=== PATIENT | female | born 1955 | race Caucasian/White ===

== ENCOUNTER 2022-10-07 06:28 | Day surgery (SDC) | payer OTHER ==
[2022-10-04 12:12] LABS: Absolute Lymphocytes (CBC) 1.7 K/uL (0.7-4.9); Hematocrit 43.6 % (36.0-45.0); Lymphocytes % 26.7 % (15.3-44.8); MCV 98.4 fL (80-100); MPV 8.8 fL (7.6-11.3); RBC Red Blood Cell Count 4.44 M/uL (3.86-4.86)
--- NOTE | 2022-10-04 12:21 | RAD REPORT ---
EXAM DESCRIPTION: RAD - Chest Pa And Lat (2 Views) - 10/04/2022 12:02 pm CLINICAL HISTORY: pre op for surgery Chest pain. COMPARISON: Chest Pa And Lat (2 Views) dated 03/26/2017; CHEST PA AND LAT 2 VIEW dated 05/30/2010; CHES T SINGLE VIEW dated 06/11/2009; CHEST PA AND LAT 2 VIEW dated 09/20/2008 TECHNIQUE: PA and lateral views of the chest were obtained. FINDINGS: The lungs are hyperexpanded compatible with COPD. The heart is upper limit of normal in si ze. No fracture or aggressive bony process. IMPRESSION: COPD without acute process identified. The USPSTF recommends annual screening for lung cancer with low-dose CT (LDCT) in adults aged 50 to 80 years who have a 20 pack-year smoking history and currently smoke or have quit within the past 15 years.
[2022-10-04 12:26] LABS: Albumin 4.2 g/dL (3.4-5.0); Bilirubin Direct 0.2 mg/dL (0-0.2); Bilirubin Indirect, Calculated 0.5 mg/dL (0.2-0.8); Bilirubin Total 0.7 mg/dL (0.2-1.0); Potassium 3.8 mEq/L (3.5-5.1); Protein, Total 7.6 g/dL (6.4-8.2)
--- NOTE | 2022-10-06 08:24 | EKG ---
Test Date: 2022-10-04 Test Time: 11:39:25 Handle Lathe Operator: CHARLA MEASUREMENT RESULTS: Intervals: Rate: 52 VT: 136 QRSD: 84 QT: 446 QTc: 414 Holcomb: P: 69 VT: 136 QRS: 72 T: 79 INTERPRETIVE STATEMENTS: Sinus bradycardia Otherwise normal ECG Compared to ECG 03/02/2018 17:38:00 Sinus rhythm no longer present Electronically Signed On 10-06-22 08:18:30 CDT by Merlin Zheng
[2022-10-07] MEDS: Ringers Lactate 1,000 ML IV ONE ×3 (06:44→07:33)
[2022-10-07] MEDS ORDERED: BUPIVACAINE 0.5% PF 10 ML VIAL ONE (07:12)
[2022-10-07] MEDS: CEFOXITIN SODIUM 1 GM/VIAL ONE ×2 (07:13→07:35)
[2022-10-07] MEDS ORDERED: propofoL 200 MG/20 ML VIAL IV ONE (07:14)
[2022-10-07] MEDS ORDERED: FENTANYL CITR 100 MCG/2 ML ONE ×2 (07:15→09:29)
[2022-10-07] MEDS ORDERED: LIDOCAINE 2% MPF 5 ML VIAL ONE (07:15)
[2022-10-07] MEDS ORDERED: MIDAZOLAM HCL 2 MG/2 ML INJ ONE (07:16)
[2022-10-07] MEDS ORDERED: ROCURONIUM 50 MG/5 ML VIAL IV ONE (07:20)
[2022-10-07] MEDS ORDERED: ONDANSETRON 4 MG/2 ML VIAL ONE ×2 (07:20→08:53)
[2022-10-07] MEDS ORDERED: NEOSTIGMINE 1 MG/ML -10 ML VIAL ONE (07:21)
[2022-10-07] MEDS ORDERED: GLYCOPYRROLATE 0.2 MG/ML SYR ONE (07:21)
[2022-10-07] MEDS ORDERED: dexAMETHasone 4 MG/ML VIAL ONE (08:07)
[2022-10-07] MEDS ORDERED: Mastisol Adhesive Liq ONE (08:33)
[2022-10-07] MEDS ORDERED: HYDROCODONE/APAP 7.5/325 MG TAB PO PRN (08:42)
[2022-10-07] MEDS: HYDROMORPHONE HCL 1 MG/ML INJ ONE ×4 (08:47→09:15)
--- NOTE | 2022-10-07 08:47 | P.OP ---
Date of Service: 10/07/22 Preop diagnosis: Chronic cholecystitis and cholelithiasis Postop diagnosis: Same Procedure performed: Laparoscopic cholecystectomy Surgeon: Merritt Cazares MD Creative Writing English Professor: Lucinda RODGERS Estimated blood loss: Minimal Specimen: Gallbladder Findings: As above Anesthesia: General Complications: None Drains: None Fluids and blood products: Nonapplicable Disposition: Recovery room Operative note: Patient brought to the OR and placed in supine position. General anesthesia begun. Patient prepped and draped in the usual sterile fashion. Marcaine 0.5% infiltrated locally. 15 blade used to make a 1 cm supraumbilical midline incision. Subcu tissue divided and bleeding controlled cautery. Fascia identified and divided. #1 Vicryl stay suture placed. Peritoneal cavity entered with sharp and blunt dissection. 12 mm trocar placed into the peritoneal cavity under direct vision. Pneumoperitoneum established. Three 5 mm trocar placed into the peritoneal cavity. 1 trocar placed in the epigastric region just to the right of midline. 2 trocars placed in the right upper quadrant. Laparoscopy revealed chronic inflammation of the gallbladder with some adhesions. These adhesions were taken down with sharp and blunt dissection. Bleeding controlled with cautery. Fundus identified and retracted superiorly. Infundibulum identified and retracted inferolaterally. Cystic duct and cystic artery clearly identified with blunt dissection. Clips placed and both structures divided. Cautery used to remove the gallbladder from the liver bed. Bleeding on the liver bed controlled with cautery. Gallbladder retrieved through the umbilicus via Endo Catch bag. Right upper quadrant irrigated. No evidence of bleeding or bile leakage appreciated. All trocars removed under direct vision. Stay sutures tied to each other to reapproximate the fascial defect. Subcutaneous wounds irrigated and bleeding controlled with cautery. 3- 0 chromic used to approximate subcutaneous tissue and close skin. Sterile dressing applied. Patient awakened and taken to recovery room in good general condition. CC: Dr. Page's and Dr. Leon's office
[2022-10-07] MEDS ORDERED: HYDRALAZINE HCL 20 MG/ML VIAL ONE (09:08)
[2022-10-07] MEDS ORDERED: HYDROMORPHONE HCL 1 MG/ML INJ ONE (09:29)
[2022-10-07] MEDS ORDERED: HYDROCODONE/APAP 7.5/325 MG TAB ONE (10:29)
[2022-10-07 12:06] VITALS: BP 155/70; TEMP 97; O2SAT 96
== END 2022-10-07 10:43 | disposition home or self-care (01) ==
LOC: OR 06:28
PROVIDERS: ATTEND Surgery
PROC: 0FT44ZZ Resection of Gallbladder, Percutaneous Endoscopic Approach (ICD-10-PCS; principal; 2022-10-07 07:30)
DX: K80.10 Calculus of gallbladder with chronic cholecystitis without obstruction (principal)
CPT/HCPCS: 93005; 85025; 80048; 36415; 80076; 88304; 71046; 47562; J0360; J2704; J1100; J2710; J2001; J2250; J3010; J1170 ×3; J0694; J2405 ×2; J7120

== ENCOUNTER 2023-08-17 14:31 | Emergency (ER) | payer MEDICARE ==
--- OUTSIDE RECORDS SUMMARY | 2023-08-17 14:34 | XMS REPORT | Continuity of Care Document ---
Author Name Unknown Address [address] [place] [address] [facility] Address [address] [place] [address] Care Team Providers Care Form Press Operator Name Role Phone Ely Navarrete Attending Clinician Unavailable Nicolas -Madeline German Attending Clinician [phone] [email or web address]_S Attending Clinician DR ANIBAL Mahajan Attending Clinician Unavailable GC_GCBZW_Kachris_S Admitting Clinician DR ANIBAL Mahajan Admitting Clinician Unavailable Payers Payer Name Policy Type Policy Number Effective Date Expirati on Date Source [employer] [id number] 2021 00:00:00 [facility] [place] [address] [id number] [facility] [place] [address] [id number] [facility] [place] [address] [id number] [facility] [place] [address] [id number] [facility] [place] [address] [id number] [facility] [place] [address] [id number] [facility] Problems Condition Name Condition Details Condition Category Status Onset Date Resolution Date Last Treatment Date Treating Clinician Comments Source [id number] Migraine with aura, intractabl e, without status migrainosu s Problem [facility] [id number] Dizziness and giddiness Problem [facility] Colon cancer screening Colon cancer screening Problem [facility] Skin cancer Skin cancer Problem [facility] [id number] Non-restor ative sleep Problem [facility] [id number] Obstructiv e sleep apnea (adult) (pediatric ) Problem [facility] Rheumatoid arthritis Rheumatoid arthritis Problem [facility] Transient ischemic attack Transient ischemic attack Problem [facility] [id number] Herpesvira l gingivosto matitis and pharyngoto nsillitis Problem [facility] [id number] Viral URI Problem Comm on [facility] [id number] Gastroesop hageal reflux disease without esophagiti s Problem [facility] [id number] Sinusitis chronic, frontal Problem [facility] Allergies, Adverse Reactions, Alerts Allergy Name Allergy Type Status Severity Reaction(s) Onset Date Inactive Date Treating Clinician Comments Source 0 Drug allergy Active Draws her tongue back [facility] 235 Drug allergy Active Itching [facility] Social History Social Habit Start Date Stop Date Quantity Comments Source Sex Assigned At [facility] History of Tobacco Use Current Smoker [facility] Smoking Status Start Date Stop Date Source Current Smoker 2022-06-01 00:00:00 [facility] Medications Ordered Medication Name Filled Medication Name Start Date Stop Date Current Medication? Ordering Clinician Indication Dosage Frequency Signature (SIG) Comments Components Source Acyclovir 800 MG Acyclovir 800 MG 08-06 00:00: 00 No 1{table t} QD Acyclovir 800 MG Acyclovir 800 MG Acyclovir 800 MG 08-06 00:00: 00 No 1{table t} QD Acyclovir 800 MG Acyclovir 800 MG Acyclovir 800 MG 2022-0 4-14 00:00: 00 No 1{table t} QD Acyclovir 800 MG Acyclovir 800 MG Acyclovir 800 MG 2022-0 4-14 00:00: 00 No 1{table t} QD Acyclovir 800 MG Acyclovir 800 MG Acyclovir 800 MG 2022-0 4-14 00:00: 00 No 1{table t} QD Acyclovir 800 MG Benzonatate 150 MG Benzonatate 150 MG 2021-04 2- 00:00: 00 04-08 00:00 :00 No 1{capsu le} TID Benzonatat e 150 MG Benzonatate 150 MG Benzonatate 150 MG 2021- 2- 00:00: 00 04-08 00:00 :00 No 1{capsu le} TID Benzonatat e 150 MG Ubrelvy 100 MG Ubrelvy 100 MG 2021- 0-19 00:00: 00 03-22 00:00 :00 No QD Ubrelvy 100 MG Ubrelvy 100 MG Ubrelvy 100 MG 2021- 0-19 00:00: 00 03-22 00:00 :00 No QD Ubrelvy 100 MG Amoxicillin -Pot Clavulanate 875-125 MG Amoxicillin -Pot Clavulanate 875-125 MG 2021-0 3-21 00:00: 00 07-23 00:00 :00 No 1{table t} BID Amoxicilli n-Pot Clavulanat e 875-125 MG Amoxicillin -Pot Clavulanate 875-125 MG Amoxicillin -Pot Clavulanate 875-125 MG 2021- 3-21 00:00: 00 07-23 00:00 :00 No 1{table t} BID Amoxicilli n-Pot Clavulanat e 875-125 MG Pseudoeph-B romphen-DM Pseudoeph-B romphen-DM 1- 00:00: 00 05-27 00:00 :00 No [place] 5 ml [facility] ProAir HFA ProAir HFA 2018-04- 00:00: 00 Yes [place] 2 puffs as needed [facility] ProAir HFA 108 (90 Base) MCG/ACT ProAir HFA 108 (90 Base) MCG/ACT 2018-04 00:00: 00 No 2{puffs _as_nee ded} QID ProAir HFA 108 (90 Base) MCG/ACT ProAir HFA 108 (90 Base) MCG/ACT ProAir HFA 108 (90 Base) MCG/ACT 2018-04 00:00: 00 No 2{puffs _as_nee ded} QID ProAir HFA 108 (90 Base) MCG/ACT ProAir HFA 108 (90 Base) MCG/ACT ProAir HFA 108 (90 Base) MCG/ACT 2018-04 00:00: 00 No 2{puffs _as_nee ded} QID ProAir HFA 108 (90 Base) MCG/ACT ProAir HFA 108 (90 Base) MCG/ACT ProAir HFA 108 (90 Base) MCG/ACT 2018-04 00:00: 00 No 2{puffs _as_nee ded} QID ProAir HFA 108 (90 Base) MCG/ACT ProAir HFA 108 (90 Base) MCG/ACT ProAir HFA 108 (90 Base) MCG/ACT 2018-04 00:00: 00 No 2{puffs _as_nee ded} QID ProAir HFA 108 (90 Base) MCG/ACT ProAir HFA 108 (90 Base) MCG/ACT ProAir HFA 108 (90 Base) MCG/ACT 2018-04 00:00: 00 No 2{puffs _as_nee ded} QID ProAir HFA 108 (90 Base) MCG/ACT ProAir HFA 108 (90 Base) MCG/ACT ProAir HFA 108 (90 Base) MCG/ACT 2018-04 00:00: 00 No 2{puffs _as_nee ded} QID ProAir HFA 108 (90 Base) MCG/ACT ProAir HFA 108 (90 Base) MCG/ACT ProAir HFA 108 (90 Base) MCG/ACT 2018-04 00:00: 00 No 2{puffs _as_nee ded} QID ProAir HFA 108 (90 Base) MCG/ACT ProAir HFA 108 (90 Base) MCG/ACT ProAir HFA 108 (90 Base) MCG/ACT 2018-04 00:00: 00 No 2{puffs _as_nee ded} QID ProAir HFA 108 (90 Base) MCG/ACT ProAir HFA 108 (90 Base) MCG/ACT ProAir HFA 108 (90 Base) MCG/ACT 2018-04 00:00: 00 No 2{puffs _as_nee ded} QID ProAir HFA 108 (90 Base) MCG/ACT ProAir HFA 108 (90 Base) MCG/ACT ProAir HFA 108 (90 Base) MCG/ACT 2018-04 00:00: 00 No 2{puffs _as_nee ded} QID ProAir HFA 108 (90 Base) MCG/ACT ProAir HFA 108 (90 Base) MCG/ACT ProAir HFA 108 (90 Base) MCG/ACT 2018-04 00:00: 00 No 2{puffs _as_nee ded} QID ProAir HFA 108 (90 Base) MCG/ACT ProAir HFA 108 (90 Base) MCG/ACT ProAir HFA 108 (90 Base) MCG/ACT 2018-04 00:00: 00 No 2{puffs _as_nee ded} QID ProAir HFA 108 (90 Base) MCG/ACT Esomeprazol e Magnesium Esomeprazol e Magnesium Yes [place] 1 capsule [facility] valACYclovi r HCl 500 MG valACYclovi r HCl 500 MG No 1{table t} QD valACYclov ir HCl 500 MG Pantoprazol e Sodium 40 MG Pantoprazol e Sodium 40 MG No 1{table t} QD Pantoprazo le Sodium 40 MG valACYclovi r HCl 500 MG valACYclovi r HCl 500 MG No 1{table t} QD valACYclov ir HCl 500 MG Pantoprazol e Sodium 40 MG Pantoprazol e Sodium 40 MG No 1{table t} QD Pantoprazo le Sodium 40 MG Pantoprazol e Sodium 40 MG Pantoprazol e Sodium 40 MG No 1{table t} QD Pantoprazo le Sodium 40 MG valACYclovi r HCl 500 MG valACYclovi r HCl 500 MG No 1{table t} QD valACYclov ir HCl 500 MG valACYclovi r HCl 500 MG valACYclovi r HCl 500 MG No 1{table t} QD valACYclov ir HCl 500 MG Pantoprazol e Sodium 40 MG Pantoprazol e Sodium 40 MG No QD Pantoprazo le Sodium 40 MG Pantoprazol e Sodium 40 MG Pantoprazol e Sodium 40 MG No QD Pantoprazo le Sodium 40 MG valACYclovi r HCl 500 MG valACYclovi r HCl 500 MG No valACYclov ir HCl 500 MG Pantoprazol e Sodium 40 MG Pantoprazol e Sodium 40 MG No QD Pantoprazo le Sodium 40 MG valACYclovi r HCl 500 MG valACYclovi r HCl 500 MG No valACYclov ir HCl 500 MG valACYclovi r HCl 500 MG valACYclovi r HCl 500 MG No valACYclov ir HCl 500 MG Pantoprazol e Sodium 40 MG Pantoprazol e Sodium 40 MG No QD Pantoprazo le Sodium 40 MG valACYclovi r HCl 500 MG valACYclovi r HCl 500 MG No valACYclov ir HCl 500 MG Pantoprazol e Sodium 40 MG Pantoprazol e Sodium 40 MG No QD Pantoprazo le Sodium 40 MG valACYclovi r HCl 500 MG valACYclovi r HCl 500 MG No valACYclov ir HCl 500 MG Pantoprazol e Sodium 40 MG Pantoprazol e Sodium 40 MG No QD Pantoprazo le Sodium 40 MG valACYclovi r HCl 500 MG valACYclovi r HCl 500 MG No valACYclov ir HCl 500 MG Pantoprazol e Sodium 40 MG Pantoprazol e Sodium 40 MG No QD Pantoprazo le Sodium 40 MG valACYclovi r HCl 500 MG valACYclovi r HCl 500 MG No valACYclov ir HCl 500 MG Pantoprazol e Sodium 40 MG Pantoprazol e Sodium 40 MG No QD Pantoprazo le Sodium 40 MG Esomeprazol e Magnesium 40 MG Esomeprazol e Magnesium 40 MG No 1{capsu le} QD Esomeprazo le Magnesium 40 MG valACYclovi r HCl 1 GM valACYclovi r HCl 1 GM No valACYclov ir HCl 1 GM Pantoprazol e Sodium 40 MG Pantoprazol e Sodium 40 MG No 1{table t} QD Pantoprazo le Sodium 40 MG Pantoprazol e Sodium 40 MG Pantoprazol e Sodium 40 MG No 1{table t} QD Pantoprazo le Sodium 40 MG valACYclovi r HCl 500 MG valACYclovi r HCl 500 MG No 1{table t} QD valACYclov ir HCl 500 MG valACYclovi r HCl 500 MG valACYclovi r HCl 500 MG 09-13 00:00 :00 No 1{table t} QD valACYclov ir HCl 500 MG Vital Signs Vital Name Observation Time Observation Value Comments Fatemeh medeiros height 2022-06-01 09:40:00 63.5 [in_i] Comm on [facility] weight 2022-06-01 09:40:00 139.8 [lb_av] Co mmon [facility] temperature 2022-06-01 09:40:00 98.1 [degF] Com [facility] bmi 2022-06-01 09:40:00 24.37 kg/m2 Comm on [facility] oximetry 2022-06-01 09:40:00 95 % Commo n [facility] respiratory rate 2022-06-01 09:40:00 16 /min [facility] blood pressure systolic 2022-06-01 09:40:00 131 mm[Hg] Common [facility] blood pressure diastolic 2022-06-01 09:40:00 61 mm[Hg] [facility] height 2022-02-10 09:00:00 63.5 [in_i] Comm on [facility] weight 2022-02-10 09:00:00 141.8 [lb_av] Co mmon [facility] temperature 2022-02-10 09:00:00 97.4 [degF] Com [facility] bmi 2022-02-10 09:00:00 24.72 kg/m2 Comm on [facility] oximetry 2022-02-10 09:00:00 97 % Commo n [facility] respiratory rate 2022-02-10 09:00:00 16 /min [facility] blood pressure systolic 2022-02-10 09:00:00 125 mm[Hg] Common [facility] blood pressure diastolic 2022-02-10 09:00:00 62 mm[Hg] Common [facility] height 2021-09-14 16:20:00 63.5 [in_i] Comm on [facility] weight 2021-09-14 16:20:00 144.2 [lb_av] Co mmon [facility] temperature 2021-09-14 16:20:00 97.3 [degF] Com mon [facility] bmi 2021-09-14 16:20:00 25.14 kg/m2 Comm on [facility] oximetry 2021-09-14 16:20:00 95 % Commo n [facility] respiratory rate 2021-09-14 16:20:00 16 /min [facility] blood pressure systolic 2021-09-14 16:20:00 117 mm[Hg] [facility] blood pressure diastolic 2021-09-14 16:20:00 56 mm[Hg] Common [facility] height 2021-07-13 15:20:00 63.5 [in_i] Comm on [facility] weight 2021-07-13 15:20:00 135 [lb_av] Comm on [facility] bmi 2021-07-13 15:20:00 23.54 kg/m2 Comm on [facility] height 2021-03-17 16:00:00 63.5 [in_i] Comm on [facility] weight 2021-03-17 16:00:00 141.4 [lb_av] Co mmon [facility] temperature 2021-03-17 16:00:00 97.4 [degF] Com mon [facility] bmi 2021-03-17 16:00:00 24.65 kg/m2 Comm on [facility] oximetry 2021-03-17 16:00:00 96 % Commo n [facility] respiratory rate 2021-03-17 16:00:00 16 /min Common [facility] blood pressure systolic 2021-03-17 16:00:00 130 mm[Hg] Common [facility] blood pressure diastolic 2021-03-17 16:00:00 66 mm[Hg] [facility] Encounters Start Date/Time End Date/Time Encounter Type Admission Type Attending [facility] Care Department Encounter ID Source 2022-05-28 10:26:00 Outpatient Ely Navarrete [facility] [id number] [facility] 2022-02-11 12:00:00 Outpatient Ely Navarrete [facility] [id number] [facility] 2022-02-09 08:48:00 Outpatient [facility] [id number] [facility] 2021-09-14 16:28:00 Outpatient Ely Navarrete [facility] ST[facility] [id number] [facility] 2021-09-10 14:18:06 Outpatient Ely Navarrete [facility] STLC [id number] [facility] 2021-05-20 12:06:59 Outpatient Ely Navarrete [facility] ST[facility] [id number] [facility] 2021-05-20 11:02:38 Outpatient Ely Navarrete [facility] STLC [id number] [facility] 2023-04-26 14:30:00 2023-04-26 15:30:00 D2Me Madelinemilo Valenzuela [id number] [facility] 2023-02-23 00:00:00 2023-02-23 00:00:00 Outpatient GC_GCBZW_Ka diyala_S [facility] [id number] [facility] 2022-08-19 00:00:2022-08-19 00:00:00 (TEL) STLMLC STLMLC [id number] [facility] 2022-08-06 00:00:00 2022-08-06 00:00:00 (TEL) STLMLC STLMLC [id number] [facility] 2022-07-02 00:00:00 2022-07-02 00:00:00 (TEL) STLMLC STLMLC [id number] [facility] 2022-06-17 00:00:00 2022-06-17 00:00:00 (TEL) STLMLC STLMLC [id number] [facility] 2022-06-01 00:00:00 2022-06-01 00:00:00 OFFICE VISIT ESTAB PT LEVEL 3 STLMLC STLMLC [id number] [facility] 2022-04-15 00:00:00 2022-04-15 00:00:00 (TEL) STLMLC STLMLC [id number] [facility] 2022-04-05 00:00:00 2022-04-05 00:00:00 (TEL) STLMLC STLMLC [id number] [facility] 2022-03-31 00:00:00 2022-03-31 00:00:00 (TEL) STLMLC STLMLC [id number] [facility] 2022-02-11 00:00:00 2022-02-11 00:00:00 (TEL) STLMLC STLMLC [id number] [facility] 2022-02-10 00:00:00 2022-02-10 00:00:00 OFFICE VISIT EST PT LEVEL 3 STLMLC STLMLC [id number] [facility] 2021-09-14 00:00:00 2021-09-14 00:00:00 OFFICE VISIT EST PT LEVEL 3 STLMLC STLMLC [id number] [facility] 2021-07-13 00:00:00 2021-07-13 00:00:00 (TEL) STLMLC STLMLC [id number] [facility] 2021-07-13 00:00:00 2021-07-13 00:00:00 OFFICE VISIT EST PT LEVEL 3 STLMLC STLMLC [id number] [facility] 2021-06-11 00:00:00 2021-06-11 00:00:00 (TEL) STLMLC STLMLC [id number] [facility] 2021-04-01 00:00:00 2021-04-01 00:00:00 (TEL) STLMLC STLMLC [id number] [facility] 2021-03-17 00:00:00 2021-03-17 00:00:00 OFFICE VISIT EST PT LEVEL 3 STLMLC STLMLC [id number] [facility] 2021-03-12 00:00:00 2021-03-12 00:00:00 (TEL) STLMLC STLMLC [id number] [facility] 2021-03-10 00:00:00 2021-03-10 00:00:00 (TEL) STLMLC STLMLC [id number] [facility] 2021-03-09 00:00:00 2021-03-09 00:00:00 (TEL) STLMLC STLMLC [id number] [facility] 2020-12-08 00:00:00 2020-12-08 00:00:00 (TEL) STLMLC STLMLC [id number] [facility] 2020-11-18 00:00:00 2020-11-18 00:00:00 (TEL) STLMLC STLMLC [id number] [facility] 2020-06-27 00:00:00 2020-06-27 00:00:00 Outpatient STLMLC STLMLC [id number] [facility] 2020-03-17 00:00:00 2020-03-17 00:00:00 Outpatient STLMLC STLMLC [id number] [facility] 2019-07-31 08:46:00 2019-07-31 08:46:00 Outpatient [facility] [id number] [facility] 2019-05-17 14:20:00 2019-05-17 14:20:00 Outpatient [facility] [id number] [facility] 2019-03-09 14:05:00 2019-03-09 14:05:00 Outpatient [facility] [id number] [facility] 2019-02-26 16:20:00 2019-02-26 16:20:00 Outpatient [facility] [id number] [facility] 2018-03-10 04:54:00 2018-03-10 07:20:[address] [facility] [facility] [id number] [facility]
[2023-08-17] MEDS ORDERED: ASPIRIN 81 MG CHEWABLE TABLET ONE (14:55)
[2023-08-17] MEDS ORDERED: NITROGLYCERIN 0.4 MG/TAB SL ONE (14:55)
[2023-08-17 15:22] LABS: Absolute Eosinophils 0.1 K/uL (0-0.5); Absolute Lymphocytes (CBC) 2.7 K/uL (0.7-4.9); Absolute Monocytes 0.5 K/uL (0.1-1.3); Absolute Neutrophil 5.6 K/uL (1.8-8.0); Basophils % 0.2 % (0-1.3); Eosinophils % 1.5 % (0-4.4); Hematocrit 39.6 % (36.0-45.0); Hemoglobin 13.4 g/dL (12.0-15.0); MCH 32.9 pg (27.0-35.0); MCHC 33.9 g/dL (32.0-36.0); MCV 97.1 fL (80-100); MPV 9.3 fL (7.6-11.3); Monocytes % 5.7 % (3.3-12.3); Neutrophils % 62.6 % (41.7-73.7); Platelets 193 thou/uL (152-406); RBC Red Blood Cell Count 4.07 M/uL (3.86-4.86); Red Cell Distribution Width 12.9 % (12.1-15.2)
[2023-08-17 15:40] LABS: ALT/SGPT 25 U/L (13-56); AST/SGOT 18 U/L (15-37); Albumin/Globulin Ratio 1.2 (1.1-1.8); Alkaline Phosphatase 53 U/L (45-117); Anion Gap 5.5 mEq/L (5.0-15.0); BUN Blood Urea Nitrogen 9 mg/dL (7-18); Bicarbonate 30 mEq/L (21-32); Bilirubin Direct 0.1 mg/dL (0-0.2); Bilirubin Indirect, Calculated 0.3 mg/dL (0.2-0.8); Bilirubin Total 0.4 mg/dL (0.2-1.0); Globulin 3.3 g/dL (2.3-3.5); Glomerular Filtration Rate 92 ml/min (=/>90); Glucose Level 102 mg/dL (74-106); Potassium 3.5 mEq/L (3.5-5.1); Protein, Total 7.3 g/dL (6.4-8.2); Sodium Level 138 mEq/L (136-145)
--- NOTE | 2023-08-17 15:51 | RAD REPORT ---
EXAM DESCRIPTION: RADChest Single View08/17/2023 3:14 pm CLINICAL HISTORY: CHEST PAIN COMPARISON: Chest Pa And Lat (2 Views) dated 10/04/2022; Chest Pa And Lat (2 Views) dated 03/26/2017; CHEST PA AND LAT 2 VIEW dated 05/30/2010; CHEST SINGLE VIEW dated 06/11/2009 TECHNIQUE: Portable AP view of the chest. FINDINGS: The lungs are clear. No pneumothorax or effusion. The cardiomediastinal contours are unre markable. IMPRESSION: No acute cardiopulmonary process.
[2023-08-17 16:04] LABS: Troponin High Sensitivity < 3.0 pg/mL (<58.9)
--- NOTE | 2023-08-17 17:40 | EDPHYS ---
Physician Documentation [facility] Name: Alessia Pack Age: 68 yrs Sex: Female : 1955 Arrival Date: 08/17/2023 Time: 14:31 Bed 7 Private MD: Marilu Page Atiq ED Physician Stanislaw Woodward HPI: 08/16 15:59 This 68 yrs old Female presents to ER via Ambulatory with complaints of Chest Pain. rt 15:59 Patient presents to the ED with chest pain. Patient was going for a checkup with her rt SH[employer]ANK[employer], when she was registering, developed a chest pain described as a pressure that radiates to her jaw, right arm. She had associated diaphoresis at that time. Has never had similar symptoms previously. Denies other acute complaints, symptoms are moderate in severity, no other aggravating or alleviating factors.. Historical: - Allergies: 14:40 prochlorperazine edisylate; ll1 14:40 Compazine; ll1 14:40 Codeine; ll1 14:40 surgical tape; ll1 - PMHx: 14:40 GERD; ll1 - PSHx: 14:40 Cholecystectomy; tubes tied; ll1 - Immunization history:: Adult Immunizations up to date. - Infectious Disease History:: Denies. - Social history:: Smoking status: Patient reports the use of cigarette tobacco products, smokes one pack cigarettes per day. - Family history:: not pertinent. ROS: 15:59 Constitutional: Negative for fever, chills, and weight loss, Respiratory: Negative for rt shortness of breath, cough, wheezing, and pleuritic chest pain, Abdomen/GI: Negative for abdominal pain, nausea, vomiting, diarrhea, and constipation, MS/Extremity: Negative for injury and deformity, Skin: Negative for injury, rash, and discoloration, Neuro: Negative for headache, weakness, numbness, tingling, and seizure, 15:59 Cardiovascular: Positive for chest pain, Negative for edema, Exam: 15:59 Constitutional: This is a well developed, well nourished patient who is awake, alert, rt and in no acute distress. Head/Face: Normocephalic, atraumatic. Chest/axilla: Normal chest wall appearance and motion. Nontender with no deformity. No lesions are appreciated. Cardiovascular: Regular rate and rhythm with a normal S1 and S2. No gallops, murmurs, or rubs. Normal PMI, no JVD. No pulse deficits. Respiratory: Lungs have equal breath sounds bilaterally, clear to auscultation and percussion. No rales, rhonchi or wheezes noted. No increased work of breathing, no retractions or nasal flaring. Abdomen/GI: Soft, non-tender, with normal bowel sounds. No distension or tympany. No guarding or rebound. No evidence of tenderness throughout. Skin: Warm, dry with normal turgor. Normal color with no rashes, no lesions, and no evidence of cellulitis. MS/ Extremity: Pulses equal, no cyanosis. Neurovascular intact. Full, normal range of motion. Neuro: Awake and alert, GCS 15, oriented to person, place, time, and situation. Cranial nerves II-XII grossly intact. Motor strength 5/5 in all extremities. Sensory grossly intact. Cerebellar exam normal. Normal gait. Psych: Awake, alert, with orientation to person, place and time. Behavior, mood, and affect are within normal limits. 15:59 ECG was reviewed by the Attending Physician. rt Vital Signs: 14:41 BP 148 / 88; Pulse 83; Resp 17; Temp 97.2; Pulse Ox 97% ; Weight 56.25 kg; Height 5 ft. ll1 3 in. ; Pain 3/10; 15:10 BP 113 / 73; Pulse 80; Resp 18; Pulse Ox 97% on R/A; rs5 16:01 BP 120 / 71; Pulse 18; Resp 77; Pulse Ox 98% on R/A; rs5 17:28 BP 131 / 82; Pulse 74; Resp 21 S; Pulse Ox 94% on R/A; as6 14:41 Body Mass Index 21.97 (56.25 kg, 160.02 cm) ll1 14:41 Pain Scale: Adult ll1 MDM: 14:38 Patient medically screened. rt 17:41 Differential diagnosis: acute myocardial infarction, acute pericarditis, coronary rt artery disease chest wall pain, pneumonia, pneumothorax. HEART Score: History: Highly Suspicious (2), ECG: Normal (0), Age: > or = 65 years (2), Risk Factors: 1 or 2 risk factors (1), Troponin: < or = 1 x Normal Limit (0), Total Score = 5. The patient was given aspirin in the Emergency Department. Data reviewed: vital signs, nurses notes, lab test result(s), EKG, radiologic studies. Consideration of Admission/Observation Escalation of care including admission/observation considered. Recommended admission for further risk stratification. Patient states that she strongly wishes to go home. Repeat troponin still undetectable. She will follow-up with cardiology as an outpatient, start taking aspirin daily. She will return for any worsening symptoms.. I considered the following discharge prescriptions or medication management in the emergency department Medications were administered in the Emergency Department. See MAR. Independent interpretation of the following test(s) in the Emergency Department X-Ray: My interpretation is No pneumonia seen on interpretation of x-ray images. Test considered but Not performed: CT: Low suspicion for PE, CT angiogram not indicated. Counseling: I had a detailed discussion with the patient and/or guardian regarding the historical points, exam findings, and any diagnostic results supporting the discharge/admit diagnosis, lab results, radiology results, the need for outpatient follow up, to return to the emergency department if symptoms worsen or persist or if there are any questions or concerns that arise at home. Response to treatment: the patient's symptoms have markedly improved after treatment. 08/16 14:52 Order name: Basic Metabolic Panel; Complete Time: 16:04 rt 08/16 14:52 Order name: CBC with Diff; Complete Time: 15:53 08/16 14:52 Order name: LFT's; Complete Time: 16:04 08/16 14:52 Order name: Magnesium; Complete Time: 16:04 08/16 14:52 Order name: Troponin HS; Complete Time: 16:04 08/16 16:44 Order name: Troponin High Sensitivity; Complete Time: 17:37 08/16 14:52 Order name: XRAY Chest (1 view); Complete Time: 15:53 rt 08/16 14:52 Order name: Cardiac monitoring; Complete Time: 15:02 08/16 14:52 Order name: EKG - Nurse/Tech; Complete Time: 15:02 08/16 14:52 Order name: IV Saline Lock; Complete Time: 14:53 08/16 14:52 Order name: Labs collected and sent; Complete Time: 15:08/16 14:52 Order name: O2 Per Protocol; Complete Time: 14:53 rt 08/16 14:52 Order name: O2 Sat Monitoring; Complete Time: 14:53 rt EC:59 Rate is 73 beats/min. Rhythm is regular, Normal Sinus Rhythm with No ectopy. QRS [place] rt is Normal. [place] interval is normal. QRS interval is normal. QT interval is normal. No Q waves. T waves are Normal. No ST changes noted. Interpreted by me. Administered Medications: 14:55 Drug: Aspirin PO Chewable Tablet 324 mg PO once; 81 mg tablets x 4 Route: PO; rs5 15:35 Follow up: Response: No adverse reaction rs5 14:58 Drug: Nitroglycerin Sublingual 0.4 mg Sublingual once; every five minute if needed x3 rs5 Route: Sublingual; 15:03 Drug: Nitroglycerin Sublingual 0.4 mg Sublingual once; every five minute if needed x3 rs5 Route: Sublingual; 15:15 Follow up: Response: No adverse reaction rs5 Disposition Summary: 08/17/23 17:39 Discharge Ordered Notes: Location: Home rt Problem: new rt Symptoms: have improved rt Condition: Stable rt Diagnosis - Chest pain, unspecified rt Followup: rt - With: Trenton Carranza MD - When: 2 - 3 days - Reason: Discharge Instructions: - Discharge Summary Sheet rt - Nonspecific Chest Pain, Adult rt Forms: - Medication Reconciliation Form rt - Antibiotic Education rt - Prescription Opioid Use rt - Patient Portal Instructions rt - Leadership Thank You Letter rt Signatures: Dispatcher [employer] Michelle Vazquez RN RN ll1 Stanislaw Woodward MD MD rt Abram Garner RN RN rs5 Corrections: (The following items were deleted from the chart) 14:52 14:52 BASIC METABOLIC PANEL+C.LAB.BRZ ordered. EDMS EDMS 14:52 14:52 CBC+H.LAB.BRZ ordered. EDMS EDMS 14:52 14:52 HEPATIC FUNCTION+C.LAB.BRZ ordered. EDMS EDMS 14:52 14:52 MAGNESIUM+C.LAB.BRZ ordered. EDMS EDMS 14:52 14:52 Troponin High Sensitivity+C.LAB.BRZ ordered. EDMS EDMS 14:52 14:52 Chest Single View+RAD.RAD.BRZ ordered. EDMS EDMS 16:44 16:44 Troponin High Sensitivity+C.LAB.BRZ ordered. EDMS EDMS
--- NOTE | 2023-08-17 17:40 | ER ---
Nurse's Notes [facility] Name: Alessia Pack Age: 68 yrs Sex: Female : 1955 Arrival Date: 08/17/2023 Time: 14:31 Bed 7 Private MD: Marilu Page Atiq Diagnosis: Chest pain, unspecified Presentation: 08/16 14:41 Chief complaint: Patient states: Sudden onset mid CP, sweaty, pain to ll1 jaw/shoulder/back. Sent in for further evaluation. Coronavirus screen: Client denies travel out of the [place] in the last 14 days. At this time, the client does not indicate any symptoms associated with coronavirus-19. Ebola Screen: Patient denies travel to an Ebola-affected area in the 21 days before illness onset. Initial Sepsis Screen: Does the patient meet any 2 criteria? No. Patient's initial sepsis screen is negative. Does the patient have a suspected source of infection? No. Patient's initial sepsis screen is negative. Risk Assessment: Do you want to hurt yourself or someone else? Patient reports no desire to harm self or others. Onset of symptoms was August 17, 2023. 14:41 Method Of Arrival: Ambulatory ll1 14:41 Acuity: CHERRY 3 ll1 Triage Assessment: 14:42 General: Appears uncomfortable, Behavior is cooperative, appropriate for age, anxious. ll1 Pain: Complains of pain in chest Pain currently is 3 out of 10 on a pain scale. Quality of pain is described as pressure, Pain began 1 hour ago. Cardiovascular: Reports chest pain, diaphoresis, fatigue. Historical: - Allergies: 14:40 prochlorperazine edisylate; ll1 14:40 Compazine; ll1 14:40 Codeine; ll1 14:40 surgical tape; ll1 - PMHx: 14:40 GERD; ll1 - PSHx: 14:40 Cholecystectomy; tubes tied; ll1 - Immunization history:: Adult Immunizations up to date. - Infectious Disease History:: Denies. - Social history:: Smoking status: Patient reports the use of cigarette tobacco products, smokes one pack cigarettes per day. - Family history:: not pertinent. Screenin:49 [facility] ED Fall Risk Assessment (Adult) History of falling in the last 3 months, as6 including since admission No falls in past 3 months (0 pts) Confusion or Disorientation No (0 pts) Intoxicated or Sedated No (0 pts) Impaired Gait No (0 pts) Mobility Assist Device Used No (0 pt) Altered Elimination No (0 pt) Score/Fall Risk Level 0 - 2 = Low Risk Oriented to surroundings, Maintained a safe environment, Educated pt \T\ family on fall prevention, incl call for assistance when getting out of bed, Assessed \T\ reinforced patient's understanding of fall precautions. Abuse screen: Denies threats or abuse. Denies injuries from another. Nutritional screening: No deficits noted. Tuberculosis screening: No symptoms or risk factors identified. Assessment: 14:48 General: Appears in no apparent distress. comfortable, Behavior is calm, cooperative. as6 Pain: Complains of pain in chest. Neuro: Level of Consciousness is awake, alert, obeys commands, Oriented to person, place, time, situation. Cardiovascular: Reports chest pain, Heart tones S1 S2 present. Respiratory: Airway is patent Trachea midline Respiratory effort is even, unlabored, Respiratory pattern is regular, symmetrical, Breath sounds are clear bilaterally. GI: No deficits noted. No signs and/or symptoms were reported involving the gastrointestinal system. : No deficits noted. No signs and/or symptoms were reported regarding the genitourinary system. EENT: No deficits noted. No signs and/or symptoms were reported regarding the EENT system. Derm: Skin is intact, is healthy with good turgor. Musculoskeletal: Circulation, motion, and sensation intact. 16:00 Reassessment: Patient and/or family updated on plan of care and expected duration. Pain rs5 level reassessed. Patient is alert, oriented x 3, equal unlabored respirations, skin warm/dry/pink. Patient denies pain at this time. Patient states feeling better. Patient states symptoms have improved. Cardiovascular: Rhythm is regular. Respiratory: Respiratory effort is even, unlabored, Respiratory pattern is regular, symmetrical. Vital Signs: 14:41 BP 148 / 88; Pulse 83; Resp 17; Temp 97.2; Pulse Ox 97% ; Weight 56.25 kg; Height 5 ft. ll1 3 in. ; Pain 3/10; 15:10 BP 113 / 73; Pulse 80; Resp 18; Pulse Ox 97% on R/A; rs5 16:01 BP 120 / 71; Pulse 18; Resp 77; Pulse Ox 98% on R/A; rs5 17:28 BP 131 / 82; Pulse 74; Resp 21 S; Pulse Ox 94% on R/A; as6 14:41 Body Mass Index 21.97 (56.25 kg, 160.02 cm) ll1 14:41 Pain Scale: Adult ll1 ED Course: 14:34 Patient arrived in ED. mr 14:34 Stanislaw Woodward MD is Attending Physician. rt 14:34 Marilu Page MD is Private Physician. mr 14:39 Alfonso Maynard, CHONG is Primary Nurse. as6 14:40 Arm band placed on Patient placed in an exam room, on a stretcher. ll1 14:42 Triage completed. ll1 14:48 Inserted saline lock: 20 gauge in right antecubital area, using aseptic technique. as6 Blood collected. 14:49 Bed in low position. Call light in reach. as6 15:10 Basic Metabolic Panel Sent. as6 15:11 CBC with Diff Sent. as6 15:11 LFT's Sent. as6 15:11 Magnesium Sent. as6 15:11 Troponin HS Sent. as6 15:16 XRAY Chest (1 view) In Process Unspecified. EDMS 16:01 No provider procedures requiring assistance completed. rs5 16:48 Repeat lab(s) drawn. by me, sent to lab. iw 17:39 Trenton Carranza MD is Referral Physician. rt 17:47 Provided Education on: follow up. as6 17:47 IV discontinued, intact, bleeding controlled, No redness/swelling at site. Pressure as6 dressing applied. Administered Medications: 14:55 Drug: Aspirin PO Chewable Tablet 324 mg PO once; 81 mg tablets x 4 Route: PO; rs5 15:35 Follow up: Response: No adverse reaction rs5 14:58 Drug: Nitroglycerin Sublingual 0.4 mg Sublingual once; every five minute if needed x3 rs5 Route: Sublingual; 15:03 Drug: Nitroglycerin Sublingual 0.4 mg Sublingual once; every five minute if needed x3 rs5 Route: Sublingual; 15:15 Follow up: Response: No adverse reaction rs5 Medication: 14:49 VIS not applicable for this client. as6 Outcome: 17:39 Discharge ordered by . rt 17:47 Discharged to home ambulatory, as6 17:47 Condition: stable 17:47 Discharge instructions given to patient, Instructed on discharge instructions, follow up and referral plans. Demonstrated understanding of instructions, follow-up care, 17:48 Patient left the ED. as6 Signatures: Dispatcher [employer] EDMS Zan Asiya, Reg Reg mr NewmanMagnolia, RN CHONG iw Michelle Alcala RN RN ll1 Alfonso Maynard RN RN as6 Stanislaw Woodward MD MD rt Abram Garner RN RN rs5
[2023-08-17 18:18] VITALS: BP 131/82; TEMP 97.2; O2SAT 94
== END 2023-08-17 17:48 | disposition home or self-care (01) ==
LOC: ER 14:31
DX: R07.9 Chest pain, unspecified (principal); F17.210 Nicotine dependence, cigarettes, uncomplicated; Z88.1 Allergy status to other antibiotic agents; Z88.5 Allergy status to narcotic agent; Z88.8 Allergy status to other drugs, medicaments and biological substances; Z91.048 Other nonmedicinal substance allergy status
CPT/HCPCS: 36415; 71045; 80048; 80076; 83735; 84484; 85025; 93005